=== PATIENT | female | born 1940 | race Caucasian/White ===

== ENCOUNTER 2020-04-06 17:08 | Inpatient (IN) ==
[2020-04-06] MEDS ORDERED: Naloxone 0.4 MG/ML INJ IVP PRN (18:52)
[2020-04-06] MEDS ORDERED: Ondansetron 4 MG/2 ML VIAL IVP PRN (18:52)
[2020-04-07] MEDS: *HR* LORazepam 1 MG TABLET PO SCH ×3 (00:31→22:12)
[2020-04-07] MEDS: Gabapentin 300 MG CAPSULE PO SCH ×2 (00:31→22:12)
[2020-04-07] MEDS: *HR* Enoxaparin 40 MG/0.4 ML SYRINGE SQ SCH (05:46)
[2020-04-07 06:01] LABS: Basophils % 0.3 %; Eosinophils # 0.2 K/mcL (0.0-0.6); Eosinophils % 1.7 %; Hematocrit 42.8 % (35.3-44.9); Hemoglobin 14.3 g/dL (11.5-15.4); Immature Granulocytes % 0.5 % (0-4); Lymphocytes # 1.1 K/mcL (0.6-4.6); Lymphocytes % 10.7 %; Mean Corpuscular HGB Conc 33.4 g/dL (31.6-35.5); Mean Corpuscular Hemoglobin 29.7 pg (28.0-33.3); Mean Corpuscular Volume 88.8 fL (83.0-100.0); Mean Platelet Volume 9.9 fL (9.4-12.4); Monocytes # 0.9 K/mcL (0.0-1.3); Neutrophils # 8.4 K/mcL (1.6-8.9); Platelet Count 120 K/mcL (140-400); Red Blood Count 4.82 M/mcL (3.82-4.97); Red Cell Distribution Width 13.6 % (11.5-14.5); Segmented Neutrophils % 78.8 %; White Blood Count 10.6 K/mcL (4.3-11.1)
[2020-04-07 06:21] LABS: BUN/Creatinine Ratio 17 (6-26); Blood Urea Nitrogen 14 mg/dL (8-23); Calcium 8.6 mg/dL (8.6-10.3); Carbon Dioxide 27 mEq/L (23-29); Chloride 104 mEq/L (98-107); Glucose 101 mg/dL (70-105); Osmolality,Calculated 285 (280-300); Potassium 4.1 mEq/L (3.5-5.1); Sodium 137 mEq/L (136-145); eGFR For African Americans > 60 (> 60); eGFR For Non-African Americans > 60 (> 60)
[2020-04-07] MEDS ORDERED: Acetaminophen IV 1,000 MG/100 ML INFUS..BTL IVPB ONE (06:33)
[2020-04-07 07:24] LABS: Bacteria,Urine Few per hpf (None-Few); Bilirubin,Urine Negative (Negative); Blood,Urine Moderate (Negative); Clarity,Urine Clear (Clear); Color,Urine Light-Yellow (Yellow); Glucose,Urine (UA) Normal (Normal); Ketones,Urine Negative (Negative); Leukocyte Esterase,Urine Moderate (Negative); Mucus,Urine Few per lpf (None-Few); Nitrite,Urine Positive (Negative); Protein,Urine Negative (Neg-Trace); RBC,Urine 30-50 per hpf (0-3); Specific Gravity,Urine 1.018 (1.010-1.025); Squamous Epithelial Cell,Urine Few per hpf (None-Few); Urobilinogen,Urine Normal (Normal); WBC,Urine 15-30 per hpf (0-3)
[2020-04-07] MEDS ORDERED: lisinopriL 20 MG TABLET PO SCH (09:00)
[2020-04-07] MEDS: *HR* OxyCODONE Immed Rel 5 MG TABLET PO PRN (10:30)
[2020-04-07 14:58] LABS: Adenovirus Not Detected (Not Detect); Bordetella Pertussis Not Detected (Not Detect); Chlamydophila pneumoniae Not Detected (Not Detect); Coronavirus 229E Not Detected (Not Detect); Coronavirus HKU1 Not Detected (Not Detect); Coronavirus NL63 Not Detected (Not Detect); Coronavirus OC43 Not Detected (Not Detect); Human Metapneumovirus Not Detected (Not Detect); Human Rhinovirus/Enterovirus Not Detected (Not Detect); Influenza A Subtype 2009 H1 Not Detected (Not Detect); Influenza B Not Detected (Not Detect); Mycoplasma pneumoniae Not Detected (Not Detect); Parainfluenza Virus 1 Not Detected (Not Detect); Parainfluenza Virus 2 Not Detected (Not Detect); Parainfluenza Virus 3 Not Detected (Not Detect); Parainfluenza Virus 4 Not Detected (Not Detect); Respiratory Syncytial Virus Not Detected (Not Detect)
[2020-04-07 15:00] LABS: SARS-CoV-2 Not Detected (Not Detect)
[2020-04-07] MEDS: cefTRIAXone 1,000 MG in Water for inj. (sterile) 10 ML IVP SCH (15:56)
[2020-04-08] MEDS ORDERED: Acetaminophen IV 1,000 MG/100 ML INFUS..BTL IVPB ONE (00:04)
[2020-04-08 00:20] LABS: ABG Base Excess 1 mEq/L (-2 to 3); ABG HCO3 25 mEq/L (21-27); ABG Oxygen Saturation 92 % (95-98); ABG PCO2 38 mmHg (35-45); ABG PH 7.43 pH Units (7.32-7.45); ABG PO2 60 mmHg (85-104); ABG TCO2 26 mEq/L (20-26)
[2020-04-08] MEDS: *HR* Enoxaparin 40 MG/0.4 ML SYRINGE SQ SCH ×2 (06:21→20:37)
[2020-04-08] MEDS ORDERED: NON-FORMULARY MEDICATION 1 EACH EACH (Atorvastatin Calcium [Lipitor] 20 MG) PO SCH (09:00)
[2020-04-08] MEDS ORDERED: lisinopriL 20 MG TABLET PO SCH (09:00)
[2020-04-08] MEDS: cefTRIAXone 1,000 MG in Water for inj. (sterile) 10 ML IVP SCH (09:20)
[2020-04-08] MEDS: Azithromycin 500 MG in 0.9 % Sodium Chloride 250 ML IVPB SCH (09:21)
[2020-04-08] MEDS: *HR* LORazepam 1 MG TABLET PO SCH ×2 (09:22→20:37)
[2020-04-08] MEDS ORDERED: Dexamethasone 10 MG/ML VIAL IVP SCH (09:45)
[2020-04-08] MEDS: Dexamethasone 4 MG/ML VIAL IVP SCH (10:47)
[2020-04-08] MEDS: Furosemide 20 MG/2 ML VIAL IVP SCH ×2 (10:47→16:04)
[2020-04-08 10:51] LABS: Fibrinogen 463 mg/dL (169-393)
[2020-04-08 11:00] LABS: D-Dimer 16714 ng/mLFEU (0-500)
[2020-04-08 11:12] LABS: Albumin 3.2 g/dL (3.5-5.7); Albumin/Globulin Ratio 1.3 (1.1-2.2); Bilirubin,Total 0.6 mg/dL (0.3-1.0); Calcium 8.5 mg/dL (8.6-10.3); Globulin 2.5 g/dL (2.4-3.5); Potassium 3.5 mEq/L (3.5-5.1); Total Protein 5.7 g/dL (6.4-8.9)
[2020-04-08] MEDS ORDERED: Isovue-370 500 ML BOTTLE IVP ONE ×2 (12:57→14:22)
[2020-04-08 14:05] LABS: Basophils % 0.3 %; Eosinophils # 0.1 K/mcL (0.0-0.6); Hematocrit 42.6 % (35.3-44.9); Hemoglobin 13.9 g/dL (11.5-15.4); Immature Granulocytes % 0.6 % (0-4); Lymphocytes # 0.5 K/mcL (0.6-4.6); Lymphocytes % 4.3 %; Mean Corpuscular HGB Conc 32.6 g/dL (31.6-35.5); Mean Corpuscular Hemoglobin 28.7 pg (28.0-33.3); Mean Corpuscular Volume 87.8 fL (83.0-100.0); Mean Platelet Volume 10.6 fL (9.4-12.4); Monocytes # 0.4 K/mcL (0.0-1.3); Monocytes % 3.7 %; Neutrophils # 10.3 K/mcL (1.6-8.9); Platelet Count 114 K/mcL (140-400); Red Blood Count 4.85 M/mcL (3.82-4.97); Segmented Neutrophils % 90.1 %; White Blood Count 11.5 K/mcL (4.3-11.1)
[2020-04-08] MEDS: *HR* OxyCODONE Immed Rel 5 MG TABLET PO PRN (17:00)
[2020-04-08] MEDS: Gabapentin 300 MG CAPSULE PO SCH (20:37)
[2020-04-09 02:03] LABS: Basophils % 0.1 %; Hemoglobin 13.5 g/dL (11.5-15.4); Immature Granulocytes % 0.6 % (0-4); Mean Platelet Volume 10.5 fL (9.4-12.4); Red Cell Distribution Width 13.8 % (11.5-14.5)
[2020-04-09 02:05] LABS: Hematocrit 39.9 % (35.3-44.9); Immature Platelets 4.7 % (1.1-6.1); Lymphocytes # 0.9 K/mcL (0.6-4.6); Lymphocytes % 6.2 %; Mean Corpuscular HGB Conc 33.8 g/dL (31.6-35.5); Mean Corpuscular Hemoglobin 29.1 pg (28.0-33.3); Monocytes # 0.8 K/mcL (0.0-1.3); Monocytes % 5.3 %; Neutrophils # 12.7 K/mcL (1.6-8.9); Platelet Count 117 K/mcL (140-400); Red Blood Count 4.64 M/mcL (3.82-4.97); Segmented Neutrophils % 87.8 %; White Blood Count 14.5 K/mcL (4.3-11.1)
[2020-04-09 02:20] LABS: Alanine Aminotransferase 16 Units/L (7-52); Albumin 3.3 g/dL (3.5-5.7); Albumin/Globulin Ratio 1.3 (1.1-2.2); Alkaline Phosphatase 42 Units/L (34-104); Aspartate Amino Transferase 18 Units/L (13-39); BUN/Creatinine Ratio 36 (6-26); Bilirubin,Total 0.5 mg/dL (0.3-1.0); Blood Urea Nitrogen 32 mg/dL (8-23); Calcium 8.9 mg/dL (8.6-10.3); Carbon Dioxide 24 mEq/L (23-29); Chloride 100 mEq/L (98-107); Globulin 2.6 g/dL (2.4-3.5); Glucose 179 mg/dL (70-105); Osmolality,Calculated 287 (280-300); Potassium 4.2 mEq/L (3.5-5.1); Sodium 133 mEq/L (136-145); Total Protein 5.9 g/dL (6.4-8.9); eGFR For African Americans > 60 (> 60); eGFR For Non-African Americans > 60 (> 60)
[2020-04-09] MEDS: Dexamethasone 4 MG/ML VIAL IVP SCH (07:48)
[2020-04-09] MEDS: Furosemide 20 MG/2 ML VIAL IVP SCH ×2 (07:48→20:03)
[2020-04-09] MEDS: *HR* LORazepam 1 MG TABLET PO SCH ×2 (07:48→20:03)
[2020-04-09] MEDS: Azithromycin 500 MG in 0.9 % Sodium Chloride 250 ML IVPB SCH (07:49)
[2020-04-09] MEDS: *HR* Enoxaparin 40 MG/0.4 ML SYRINGE SQ SCH ×2 (07:49→20:04)
[2020-04-09] MEDS: cefTRIAXone 1,000 MG in Water for inj. (sterile) 10 ML IVP SCH (07:49)
[2020-04-09] MEDS ORDERED: Perflutren Lipid Microsphere 1.3 ML in 0.9 % Sodium Chloride 8.7 ML IVP PRN (07:56)
[2020-04-09] MEDS: *HR* OxyCODONE Immed Rel 5 MG TABLET PO PRN (12:24)
[2020-04-09] MEDS ORDERED: Nitroglycerin 0.4 MG TAB.SUBL SL PRN (15:17)
[2020-04-09] MEDS ORDERED: Nitroglycerin 0.4 MG TAB.SUBL SL ONE (15:23)
[2020-04-09] MEDS: Gabapentin 300 MG CAPSULE PO SCH (20:03)
[2020-04-10 03:41] LABS: Basophils % 0.1 %; Hematocrit 41.5 % (35.3-44.9); Hemoglobin 13.7 g/dL (11.5-15.4); Immature Granulocytes % 0.9 % (0-4); Lymphocytes # 1.2 K/mcL (0.6-4.6); Mean Corpuscular Hemoglobin 28.2 pg (28.0-33.3); Mean Corpuscular Volume 85.6 fL (83.0-100.0); Mean Platelet Volume 10.8 fL (9.4-12.4); Monocytes # 1.2 K/mcL (0.0-1.3); Neutrophils # 17.5 K/mcL (1.6-8.9); Platelet Count 170 K/mcL (140-400); Red Blood Count 4.85 M/mcL (3.82-4.97); Red Cell Distribution Width 13.6 % (11.5-14.5); White Blood Count 20.1 K/mcL (4.3-11.1)
[2020-04-10 03:42] LABS: Fibrinogen 419 mg/dL (169-393)
[2020-04-10 03:48] LABS: D-Dimer 2478 ng/mLFEU (0-500)
[2020-04-10 03:59] LABS: Alanine Aminotransferase 17 Units/L (7-52); Albumin 3.3 g/dL (3.5-5.7); Albumin/Globulin Ratio 1.2 (1.1-2.2); Alkaline Phosphatase 48 Units/L (34-104); Aspartate Amino Transferase 17 Units/L (13-39); BUN/Creatinine Ratio 45 (6-26); Bilirubin,Total 0.6 mg/dL (0.3-1.0); Blood Urea Nitrogen 29 mg/dL (8-23); Calcium 8.6 mg/dL (8.6-10.3); Carbon Dioxide 27 mEq/L (23-29); Chloride 100 mEq/L (98-107); Globulin 2.7 g/dL (2.4-3.5); Glucose 150 mg/dL (70-105); Osmolality,Calculated 289 (280-300); Potassium 4.1 mEq/L (3.5-5.1); Sodium 135 mEq/L (136-145); eGFR For African Americans > 60 (> 60); eGFR For Non-African Americans > 60 (> 60)
[2020-04-10 04:04] LABS: Phosphorous 3.4 mg/dL (2.7-4.5)
[2020-04-10] MEDS: Furosemide 20 MG/2 ML VIAL IVP SCH ×2 (08:14→16:23)
[2020-04-10] MEDS: Azithromycin 500 MG in 0.9 % Sodium Chloride 250 ML IVPB SCH (08:15)
[2020-04-10] MEDS: Dexamethasone 4 MG/ML VIAL IVP SCH (08:16)
[2020-04-10] MEDS: *HR* LORazepam 1 MG TABLET PO SCH ×2 (08:16→22:10)
[2020-04-10] MEDS: *HR* Enoxaparin 40 MG/0.4 ML SYRINGE SQ SCH (08:16)
[2020-04-10] MEDS: cefTRIAXone 1,000 MG in Water for inj. (sterile) 10 ML IVP SCH (08:17)
[2020-04-10] MEDS: *HR* OxyCODONE Immed Rel 5 MG TABLET PO PRN (11:06)
[2020-04-10] MEDS: Gabapentin 300 MG CAPSULE PO SCH (22:10)
[2020-04-10] MEDS: Simethicone 80 MG TAB.CHEW PO PRN (22:16)
[2020-04-11 01:38] LABS: Basophils % 0.2 %; Hematocrit 41.2 % (35.3-44.9); Hemoglobin 14.1 g/dL (11.5-15.4); Immature Granulocytes % 0.9 % (0-4); Lymphocytes # 1.6 K/mcL (0.6-4.6); Lymphocytes % 9.3 %; Mean Corpuscular HGB Conc 34.2 g/dL (31.6-35.5); Mean Corpuscular Hemoglobin 29.5 pg (28.0-33.3); Mean Corpuscular Volume 86.2 fL (83.0-100.0); Mean Platelet Volume 10.3 fL (9.4-12.4); Monocytes # 1.3 K/mcL (0.0-1.3); Monocytes % 7.4 %; Neutrophils # 14.3 K/mcL (1.6-8.9); Platelet Count 183 K/mcL (140-400); Red Blood Count 4.78 M/mcL (3.82-4.97); Red Cell Distribution Width 13.5 % (11.5-14.5); Segmented Neutrophils % 82.2 %; White Blood Count 17.4 K/mcL (4.3-11.1)
[2020-04-11 01:58] LABS: Alanine Aminotransferase 20 Units/L (7-52); Albumin 3.2 g/dL (3.5-5.7); Albumin/Globulin Ratio 1.2 (1.1-2.2); Alkaline Phosphatase 43 Units/L (34-104); Aspartate Amino Transferase 14 Units/L (13-39); BUN/Creatinine Ratio 45 (6-26); Bilirubin,Total 0.5 mg/dL (0.3-1.0); Blood Urea Nitrogen 35 mg/dL (8-23); Calcium 8.4 mg/dL (8.6-10.3); Carbon Dioxide 26 mEq/L (23-29); Chloride 99 mEq/L (98-107); Globulin 2.7 g/dL (2.4-3.5); Glucose 156 mg/dL (70-105); Osmolality,Calculated 289 (280-300); Potassium 4.3 mEq/L (3.5-5.1); Sodium 134 mEq/L (136-145); Total Protein 5.9 g/dL (6.4-8.9); eGFR For African Americans > 60 (> 60); eGFR For Non-African Americans > 60 (> 60)
[2020-04-11 01:59] LABS: Magnesium 2.2 mg/dL (1.6-2.6); Phosphorous 3.5 mg/dL (2.7-4.5)
[2020-04-11] MEDS: *HR* Enoxaparin 40 MG/0.4 ML SYRINGE SQ SCH (05:45)
[2020-04-11] MEDS: Simethicone 80 MG TAB.CHEW PO PRN ×2 (05:46→10:10)
[2020-04-11] MEDS ORDERED: Azithromycin 250 MG TABLET PO SCH (09:00)
[2020-04-11] MEDS: *HR* LORazepam 1 MG TABLET PO SCH ×2 (09:39→20:49)
[2020-04-11] MEDS: cefTRIAXone 1,000 MG in Water for inj. (sterile) 10 ML IVP SCH (10:11)
[2020-04-11] MEDS: Furosemide 20 MG/2 ML VIAL IVP SCH (10:11)
[2020-04-11] MEDS ORDERED: Furosemide 20 MG TABLET PO SCH (11:45)
[2020-04-11] MEDS: amLODIPine 5 MG TABLET PO SCH (13:42)
[2020-04-11] MEDS: *HR* OxyCODONE Immed Rel 5 MG TABLET PO PRN (17:32)
[2020-04-11] MEDS: Gabapentin 300 MG CAPSULE PO SCH (20:49)
[2020-04-11] MEDS: Cefdinir 300 MG CAPSULE PO SCH (20:49)
[2020-04-12] MEDS: *HR* Enoxaparin 40 MG/0.4 ML SYRINGE SQ SCH (05:30)
[2020-04-12] MEDS: *HR* OxyCODONE Immed Rel 5 MG TABLET PO PRN ×2 (06:21→17:30)
[2020-04-12 07:27] LABS: BUN/Creatinine Ratio 41 (6-26); Blood Urea Nitrogen 29 mg/dL (8-23); Calcium 8.4 mg/dL (8.6-10.3); Carbon Dioxide 27 mEq/L (23-29); Chloride 101 mEq/L (98-107); Glucose 103 mg/dL (70-105); Magnesium 2.1 mg/dL (1.6-2.6); Osmolality,Calculated 288 (280-300); Phosphorous 3.4 mg/dL (2.7-4.5); Potassium 4.2 mEq/L (3.5-5.1); Sodium 136 mEq/L (136-145); eGFR For African Americans > 60 (> 60); eGFR For Non-African Americans > 60 (> 60)
[2020-04-12] MEDS: Cefdinir 300 MG CAPSULE PO SCH ×2 (09:49→19:42)
[2020-04-12] MEDS: *HR* LORazepam 1 MG TABLET PO SCH ×2 (09:49→19:42)
[2020-04-12] MEDS: lisinopriL 10 MG TABLET PO SCH (09:50)
[2020-04-12] MEDS: Acetaminophen 325 MG TABLET PO PRN ×2 (09:50→20:54)
[2020-04-12] MEDS: amLODIPine 5 MG TABLET PO SCH (09:50)
[2020-04-12] MEDS: Furosemide 20 MG TABLET PO SCH (12:33)
[2020-04-12] MEDS: Simethicone 80 MG TAB.CHEW PO PRN (17:33)
[2020-04-12] MEDS: Gabapentin 300 MG CAPSULE PO SCH (19:42)
[2020-04-13] MEDS: *HR* OxyCODONE Immed Rel 5 MG TABLET PO PRN ×2 (02:51→11:27)
[2020-04-13] MEDS ORDERED: Mag Hydrox/Al Hydrox/Simeth 30 ML UDC PO ONE (03:20)
[2020-04-13 03:42] LABS: Basophils % 0.2 %; Eosinophils # 0.8 K/mcL (0.0-0.6); Eosinophils % 5.8 %; Hematocrit 43.6 % (35.3-44.9); Hemoglobin 14.5 g/dL (11.5-15.4); Immature Granulocytes % 6.1 % (0-4); Lymphocytes % 23.9 %; Mean Corpuscular HGB Conc 33.3 g/dL (31.6-35.5); Mean Corpuscular Hemoglobin 29.5 pg (28.0-33.3); Mean Corpuscular Volume 88.6 fL (83.0-100.0); Monocytes # 1.2 K/mcL (0.0-1.3); Neutrophils # 8.1 K/mcL (1.6-8.9); Platelet Count 207 K/mcL (140-400); Red Blood Count 4.92 M/mcL (3.82-4.97); Red Cell Distribution Width 13.8 % (11.5-14.5); White Blood Count 14.4 K/mcL (4.3-11.1)
[2020-04-13 03:44] LABS: Lymphocytes # 3.4 K/mcL (0.6-4.6)
[2020-04-13 04:02] LABS: BUN/Creatinine Ratio 37 (6-26); Blood Urea Nitrogen 28 mg/dL (8-23); Calcium 8.4 mg/dL (8.6-10.3); Carbon Dioxide 25 mEq/L (23-29); Chloride 100 mEq/L (98-107); Glucose 133 mg/dL (70-105); Magnesium 2.1 mg/dL (1.6-2.6); Osmolality,Calculated 281 (280-300); Phosphorous 4.2 mg/dL (2.7-4.5); Potassium 4.4 mEq/L (3.5-5.1); Sodium 132 mEq/L (136-145); eGFR For African Americans > 60 (> 60); eGFR For Non-African Americans > 60 (> 60)
[2020-04-13 04:49] LABS: Platelet Estimate Normal (Normal)
[2020-04-13] MEDS: *HR* Enoxaparin 40 MG/0.4 ML SYRINGE SQ SCH (05:48)
[2020-04-13] MEDS: lisinopriL 10 MG TABLET PO SCH (07:39)
[2020-04-13] MEDS: Cefdinir 300 MG CAPSULE PO SCH ×2 (07:39→19:58)
[2020-04-13] MEDS: Furosemide 20 MG TABLET PO SCH (07:39)
[2020-04-13] MEDS: *HR* LORazepam 1 MG TABLET PO SCH ×2 (07:39→19:59)
[2020-04-13] MEDS: amLODIPine 5 MG TABLET PO SCH (07:39)
[2020-04-13] MEDS: Acetaminophen 325 MG TABLET PO PRN (07:42)
[2020-04-13] MEDS: Simethicone 80 MG TAB.CHEW PO PRN ×2 (09:43→19:59)
[2020-04-13] MEDS: Gabapentin 300 MG CAPSULE PO SCH (19:59)
[2020-04-14] MEDS: *HR* OxyCODONE Immed Rel 5 MG TABLET PO PRN ×3 (01:49→22:32)
[2020-04-14] MEDS ORDERED: Mag Hydrox/Al Hydrox/Simeth 30 ML UDC PO ONE (02:24)
[2020-04-14 03:08] LABS: Basophils % 0.2 %; Eosinophils # 0.9 K/mcL (0.0-0.6); Eosinophils % 5.1 %; Hematocrit 43.9 % (35.3-44.9); Hemoglobin 14.6 g/dL (11.5-15.4); Immature Granulocytes % 5.5 % (0-4); Lymphocytes # 2.9 K/mcL (0.6-4.6); Lymphocytes % 16.2 %; Mean Corpuscular HGB Conc 33.3 g/dL (31.6-35.5); Mean Corpuscular Hemoglobin 29.1 pg (28.0-33.3); Mean Corpuscular Volume 87.6 fL (83.0-100.0); Mean Platelet Volume 9.6 fL (9.4-12.4); Monocytes # 1.3 K/mcL (0.0-1.3); Monocytes % 7.4 %; Neutrophils # 11.8 K/mcL (1.6-8.9); Platelet Count 225 K/mcL (140-400); Red Blood Count 5.01 M/mcL (3.82-4.97); Red Cell Distribution Width 13.6 % (11.5-14.5); Segmented Neutrophils % 65.6 %
[2020-04-14 03:30] LABS: BUN/Creatinine Ratio 36 (6-26); Blood Urea Nitrogen 27 mg/dL (8-23); Calcium 8.4 mg/dL (8.6-10.3); Carbon Dioxide 26 mEq/L (23-29); Chloride 100 mEq/L (98-107); Glucose 139 mg/dL (70-105); Magnesium 2.1 mg/dL (1.6-2.6); Osmolality,Calculated 283 (280-300); Phosphorous 3.6 mg/dL (2.7-4.5); Potassium 4.6 mEq/L (3.5-5.1); Sodium 133 mEq/L (136-145); eGFR For African Americans > 60 (> 60); eGFR For Non-African Americans > 60 (> 60)
[2020-04-14 03:31] LABS: Platelet Estimate Normal (Normal)
[2020-04-14] MEDS: *HR* Enoxaparin 40 MG/0.4 ML SYRINGE SQ SCH (06:20)
[2020-04-14] MEDS: *HR* LORazepam 1 MG TABLET PO SCH ×2 (09:47→20:08)
[2020-04-14] MEDS: Simethicone 80 MG TAB.CHEW PO PRN ×2 (09:47→16:28)
[2020-04-14] MEDS: lisinopriL 10 MG TABLET PO SCH (09:48)
[2020-04-14] MEDS: amLODIPine 5 MG TABLET PO SCH (09:48)
[2020-04-14] MEDS: Furosemide 20 MG TABLET PO SCH (09:48)
[2020-04-14] MEDS: Acetaminophen 325 MG TABLET PO PRN (20:07)
[2020-04-14] MEDS: Gabapentin 300 MG CAPSULE PO SCH (20:07)
[2020-04-15 05:23] LABS: Basophils # 0.1 K/mcL (0.0-0.2); Eosinophils # 0.6 K/mcL (0.0-0.6); Hemoglobin 14.2 g/dL (11.5-15.4); Immature Granulocytes % 4.4 % (0-4); Lymphocytes % 20.4 %; Mean Corpuscular Hemoglobin 29.2 pg (28.0-33.3); Mean Corpuscular Volume 88.5 fL (83.0-100.0); Mean Platelet Volume 9.7 fL (9.4-12.4); Monocytes # 1.3 K/mcL (0.0-1.3); Monocytes % 8.8 %; Platelet Count 220 K/mcL (140-400); Red Blood Count 4.86 M/mcL (3.82-4.97); Red Cell Distribution Width 13.6 % (11.5-14.5); Segmented Neutrophils % 61.4 %; White Blood Count 14.7 K/mcL (4.3-11.1)
[2020-04-15] MEDS: *HR* Enoxaparin 40 MG/0.4 ML SYRINGE SQ SCH (05:28)
[2020-04-15 05:44] LABS: BUN/Creatinine Ratio 32 (6-26); Blood Urea Nitrogen 25 mg/dL (8-23); Calcium 8.5 mg/dL (8.6-10.3); Carbon Dioxide 26 mEq/L (23-29); Chloride 99 mEq/L (98-107); Glucose 111 mg/dL (70-105); Osmolality,Calculated 279 (280-300); Phosphorous 3.6 mg/dL (2.7-4.5); Potassium 4.7 mEq/L (3.5-5.1); Sodium 132 mEq/L (136-145); eGFR For African Americans > 60 (> 60); eGFR For Non-African Americans > 60 (> 60)
[2020-04-15] MEDS: amLODIPine 5 MG TABLET PO SCH (07:41)
[2020-04-15] MEDS: Furosemide 20 MG TABLET PO SCH (07:42)
[2020-04-15] MEDS: lisinopriL 10 MG TABLET PO SCH (07:42)
[2020-04-15] MEDS: *HR* LORazepam 1 MG TABLET PO SCH ×2 (07:42→21:25)
[2020-04-15] MEDS: *HR* OxyCODONE Immed Rel 5 MG TABLET PO PRN ×2 (10:36→21:24)
[2020-04-15] MEDS: Simethicone 80 MG TAB.CHEW PO PRN (10:37)
[2020-04-15] MEDS: Acetaminophen 325 MG TABLET PO PRN (11:57)
[2020-04-15] MEDS: Gabapentin 300 MG CAPSULE PO SCH (21:24)
[2020-04-16] MEDS: *HR* Enoxaparin 40 MG/0.4 ML SYRINGE SQ SCH (05:47)
[2020-04-16] MEDS: *HR* OxyCODONE Immed Rel 5 MG TABLET PO PRN (05:47)
[2020-04-16] MEDS: *HR* LORazepam 1 MG TABLET PO SCH (08:00)
[2020-04-16] MEDS: Furosemide 20 MG TABLET PO SCH (08:00)
[2020-04-16] MEDS: lisinopriL 10 MG TABLET PO SCH (08:00)
[2020-04-16] MEDS: amLODIPine 5 MG TABLET PO SCH (08:00)
[2020-04-16] MEDS: Simethicone 80 MG TAB.CHEW PO PRN (09:58)
[2020-04-16 11:09] VITALS: BP 106/56
[2020-04-16] MEDS: Acetaminophen 325 MG TABLET PO PRN (11:10)
== END 2020-04-16 15:50 | DRG 535 ==
LOC: 3NENU → SUATTDRO 18:30 → 2NENU 04-08 11:13 → SUATTDRO 04-08 16:30 → 3NENU 04-10 21:59
PROVIDERS: ADMIT Family Medicine; ATTEND Internal Medicine